=== PATIENT | female | born 1970 | race African-American/Black ===

== ENCOUNTER 2018-09-26 01:43 | Emergency (ER) | payer OTHER ==
[~2018-09-26] VITALS: Ht 165.1 cm; Wt 68.0 kg
[~2018-09-26 01:43] MED LIST: CYCLOBENZAPRINE5 M2 PO; FIORICET1 TAB PO; MOTRIN800 MG PO; NORCO1 TA2 PO; PREMARIN0.3 MG PO; PREMARIN0.625 MG PO; PRI20 PO; ZES10 PO; ZOC20 PO
[2018-09-26 03:15] VITALS: Ht 165.1 cm; Wt 68.0 kg
[2018-09-26 06:21] VITALS: BP 118/88
== END 2018-09-26 07:20 | disposition home or self-care (01) ==
LOC: ED 01:43
DX: S13.4XXA Sprain of ligaments of cervical spine, initial encounter (principal); S43.402A Unspecified sprain of left shoulder joint, initial encounter; S73.102A Unspecified sprain of left hip, initial encounter; I10 Essential (primary) hypertension; G43.909 Migraine, unspecified, not intractable, without status migrainosus; Z90.710 Acquired absence of both cervix and uterus; W10.8XXA Fall (on) (from) other stairs and steps, initial encounter; Y93.89 Activity, other specified; Y92.098 Other place in other non-institutional residence as the place of occurrence of the external cause; Y99.8 Other external cause status
CPT/HCPCS: J1885; J3010; Q0092

== ENCOUNTER 2019-01-23 16:08 | Emergency (ER) | payer OTHER ==
[~2019-01-23] VITALS: Ht 165.1 cm; Wt 68.5 kg
[2019-01-23 16:18] VITALS: Ht 165.1 cm; Wt 68.5 kg
[2019-01-23 19:45] LABS: BASOPHIL % 0.5 % (0-2); PLATELET COUNT 381 x10^3mcL (130-400); RED CELL DISTRIBUTION WIDTH 14.5 % (11.5-14.5)
[2019-01-23 19:48] LABS: CALCIUM 9.2 mg/dL (8.5-10.1); CARBON DIOXIDE 25.7 mmol/L (21-32); CHLORIDE SERUM 101 mmol/L (98-107); GFR1 > 60 mL/min; GLUCOSE SERUM 102 mg/dL (74-106); POTASSIUM SERUM 3.7 mmol/L (3.5-5.1); SODIUM SERUM 137 mmol/L (136-145)
[2019-01-23 19:53] LABS: ALBUMIN 3.7 g/dL (3.4-5.0); ALKALINE PHOSPHATASE 53 U/L (46-116); AST/SGOT 17 U/L (15-37); BILIRUBIN TOTAL 0.36 mg/dL (0.20-1.00); TOTAL PROTEIN, SERUM 8.2 g/dL (6.4-8.2)
[2019-01-23 20:03] LABS: ALT/SGPT 17 U/L (14-59)
[2019-01-23 23:45] VITALS: BP 141/100
== END 2019-01-23 23:45 | disposition home or self-care (01) ==
LOC: ED 16:08
PROVIDERS: Emergency Medicine
DX: R51 Headache (principal); R79.89 Other specified abnormal findings of blood chemistry; R10.13 Epigastric pain; R10.32 Left lower quadrant pain; I10 Essential (primary) hypertension; Z90.710 Acquired absence of both cervix and uterus
CPT/HCPCS: J1200; J1885; J2270; J2405; J2765; J3475; Q9967